=== PATIENT | female | born 1955 | race Caucasian/White ===

== ENCOUNTER → 2017-01-20 | Outpatient (CLI) | payer BC ==
--- NOTE | 2017-01-20 15:36 | RADRPT ---
EXAM DATE/TIME: 01/20/2017 14:14 [place] COMPARISON: No previous studies available for comparison. INDICATIONS : Parkinsons disease. Unsteady gait, slurred speech and tremors. DOSE: 6.0 mCi Ioflupane Iodine-123 in 2.5 ml total volume MEDICATION(S): 130 mg Potasium Iodine PO one hour prior to injection SPECT IMAGIN.5 hrs. IMAGNG: SPECT/CT imaging with fusion was performed. RADIATION DOSE: 30.27 CTDIvol (mGy) MEDICAL HISTORY : Parkinson's. SURGICAL HISTORY : Tonsillectomy. ENCOUNTER: Initial ACUITY: >1 yr PAIN SCALE: 0/10 LOCATION: Head. TECHNIQUE: SPECT imaging of the brain was performed in sagittal, axial and coronal planes. Attenuation correctio n was performed with computed tomography and both the attenuation correction and non-attenuation jasper ected data sets were reviewed. FINDINGS: The scan is abnormal demonstrating very little radiopharmaceutical uptake in the right striatum. The re is some uptake in the left striatum, but there is a absent uptake on the left side of the posterio r striatum. CONCLUSION: Abnormal dobutamine transporters scan demonstrating absent uptake in the right striatum and decreased uptake in the posterior left striatum. Edward Torre MD on January 20, 2017 at 15:30 Board Certified Radiologist. This report was verified electronically.
== END ==
LOC: HRAD 09:17
DX: G20 Parkinson's disease (principal)
CPT/HCPCS: 78607; A9584